=== PATIENT | male | born 1950 | race Caucasian/White ===

== ENCOUNTER → 2016-09-14 | Outpatient (CLI) | payer BC ==
[~2016-09-14] MED LIST: AMLO2.5T PO; ASPEC81 PO; ASPI81TA21 PO; CETI10TA84 PO; METO50TA7 PO; MULT-190 PO; MULT-506 PO; NIAC1TAB59 PO; OMEG10007 PO; OXYC-57 PO; SIMV20TA2 PO; ST JOHN'S WORT PO; ZNTT/150 PO
--- NOTE | 2016-09-14 12:00 | DIAGNOSTIC IMAGING REPORT ---
RENAL ULTRASOUND CLINICAL HISTORY: Hematuria. Abdominal pain. COMPARISON STUDY: Abdominal ultrasound March 25, 2014. TECHNIQUE: Sonography of the kidneys and the urinary bladder was performed. FINDINGS: The right kidney measures 10.8 x 5.9 x 5.1 cm and the left measures 11.4 x 6.1 x 5.2 cm. There is no hydronephrosis. Renal echogenicity is at the upper limits of normal. There are equivocal left renal calculi. Both ureteral jets were identified. The bladder was unremarkable. IMPRESSION: 1. No hydronephrosis. 2. Equivocal nonobstructing left renal calculi. Electronically signed by: Kojo Juan M.D. 09/14/2016 11:59 AM Dictated Date/Time: 09/14/2016 11:57 AM
== END | disposition home or self-care (01) ==
LOC: C.ULTRBC 11:17
PROVIDERS: ATTEND Family Medicine
DX: R39.89 Other symptoms and signs involving the genitourinary system (principal)

== ENCOUNTER → 2016-10-18 | Outpatient (CLI) | payer BC | END | disposition home or self-care (01) | LOC: C.PATHSPEC 17:08 | PROVIDERS: ATTEND Urology | DX: N40.1 Benign prostatic hyperplasia with lower urinary tract symptoms (principal); N20.0 Calculus of kidney; N30.00 Acute cystitis without hematuria ==

== ENCOUNTER → 2016-11-27 | Outpatient (CLI) | payer BC | END | disposition home or self-care (01) | LOC: C.LAB1850 13:53 | PROVIDERS: ATTEND Urology | DX: N40.1 Benign prostatic hyperplasia with lower urinary tract symptoms (principal) ==

== ENCOUNTER → 2017-01-10 | Outpatient (CLI) | payer BC ==
[~2017-01-10] MED LIST changes: -AMLO2.5T PO; -ASPI81TA21 PO; -CETI10TA84 PO; -METO50TA7 PO; -OXYC-57 PO; -ZNTT/150 PO
== END | disposition home or self-care (01) ==
LOC: C.LAB1850 16:59
PROVIDERS: ATTEND Urology
DX: R97.20 Elevated prostate specific antigen [PSA] (principal)

== ENCOUNTER 2017-03-08 08:10 | Observation (INO) | payer BC ==
[~2017-03-08] VITALS: Ht 172.7 cm; Wt 88.9 kg
[2017-03-08] VITALS (9 sets, daily range): BP systolic 118–137; BP diastolic 69–81; PULSE 58–78; TEMP 36.7–37.1; O2SAT 92–98; Ht 172.7 cm; Wt 88.9 kg
--- NOTE | 2017-03-08 08:20 | EMERGENCY ROOM VISIT NOTE ---
History First contact with patient: 08:17 Chief Complaint: ABDOMINAL PAIN Stated Complaint: RT SIDE PAIN History of Present Illness The patient is a 66 year old male who presents to the Emergency Room with complaints of right lower quadrant abdominal pain. The patient states he awoke with the pain which begins continuously spotting. The patient describes the pain as radiating into the groin. He describes it as dull/aching and rates the pain 6/10. The patient has never had pain like this before. He has not taken any medications for his pain. The patient states movement worsens his pain, and lying still helps it. He states he has had difficulty finding a comfortable position. The patient denies any nausea, vomiting, diarrhea, constipation, fevers, chills, night sweats, urinary discomfort or blood in the urine, recent travel or illness, chest pain, dyspnea. The patient states the pain spontaneously began in the right lower quadrant, and denies any periumbilical, epigastric, or other pain. He does have a history of 2 inguinal hernia repairs, one on the right, on the left. He states this morning he also "spit up some blood". The patient described the blood as dark or red, and states he thought it was just mucus. This occurred right before brushing his teeth. He has no history of kidney stones, no prior abdominal surgeries. He does have a significant cardiac history. He states he had a heart valve replaced and has a history of left bundle-branch block. Last food or drink intake was approximately 1900 hrs. yesterday. The patient does have a history of reflux. Review of Systems A complete 10 point review of systems was reviewed with the patient with pertinent positives and negatives as per history of present illness. All else were negative. Past Medical/Surgical History Medical Problems: (1) Appendicitis, acute GERD BPH Hyperlipidemia Social History Smoking Status: Never Smoker Smokeless Tobacco Use: No Alcohol Use: none Drug Use: none Marital Status: Housing Status: lives with family Occupation Status: employed Current/Historical Medications Scheduled Amlodipine (Norvasc), 2.5 MG PO QPM Aspirin Enteric Coated (Ecotrin Or Generic), 81 MG PO DAILY Cetirizine (Zyrtec), 10 MG PO QPM Metoprolol Succ (Toprol Xl) (Toprol-Xl), 25 MG PO QPM Multivitamin (Multivitamin), 1 TAB PO DAILY Ranitidine (Zantac), 150 MG PO QPM Simvastatin (Zocor), 20 MG PO QPM Physical Exam Vital Signs Date Time Temp Pulse Resp B/P (MAP) Pulse Ox O2 Delivery O2 Flow Rate FiO2 03/08/17 16:52 56 19 03/08/17 16:52 56 19 94 03/08/17 16:51 145/81 03/08/17 16:47 60 19 03/08/17 16:47 59 19 95 03/08/17 16:45 148/91 03/08/17 16:42 57 18 94 03/08/17 16:42 58 18 03/08/17 16:41 135/95 03/08/17 16:39 61 20 93 03/08/17 16:39 62 20 03/08/17 16:38 36.7 58 20 135/95 94 Nasal Cannula 2 03/08/17 16:35 154/89 03/08/17 16:34 59 19 03/08/17 16:34 58 19 97 03/08/17 16:30 150/91 03/08/17 16:29 59 19 96 03/08/17 16:29 59 19 03/08/17 16:28 150/100 03/08/17 16:25 171/97 03/08/17 16:24 59 17 03/08/17 16:24 59 17 95 03/08/17 16:23 61 18 03/08/17 16:23 61 18 95 03/08/17 16:20 150/99 03/08/17 16:18 66 19 03/08/17 16:18 65 19 93 03/08/17 16:15 154/98 03/08/17 16:13 62 17 03/08/17 16:13 62 17 94 03/08/17 16:12 155/94 03/08/17 16:11 147/113 03/08/17 16:09 155/101 03/08/17 16:08 66 22 94 03/08/17 16:08 66 22 03/08/17 16:08 36.1 65 16 155/101 (115) 95 Mask 10 03/08/17 14:21 36.8 51 18 148/91 (110) 98 Room Air 03/08/17 14:00 98 03/08/17 13:59 50 16 145/95 98 03/08/17 12:51 50 16 145/95 98 Room Air 03/08/17 11:18 53 16 138/80 99 Room Air 03/08/17 09:39 54 16 135/80 99 Room Air 03/08/17 08:12 36.8 59 17 137/80 97 Room Air Physical Exam VITALS: Vitals are noted on the nurse's note and reviewed by myself. Vital signs stable, pt. is afebrile. GENERAL: 66-year-old male, in no acute distress, nondiaphoretic, well-developed well-nourished. SKIN: The skin was without rashes, erythema, edema, or bruising. There is no tenting of the skin. Capillary reflex less than 2 seconds. HEAD: Normocephalic atraumatic. EARS: External auditory canals clear, tympanic membranes pearly [place] without erythema or effusion bilaterally. EYES: Pupils equal round and reactive to light and accommodation. Conjunctivae without injection, sclerae without icterus. Extraocular movements intact. NOSE: Patent, turbinates without inflammation or discharge. No sinus tenderness. MOUTH: Mucous membranes moist. Tonsils are not enlarged. Pharynx without erythema or exudate. Uvula midline. Airway patent. Tongue does not deviate. NECK: Supple without nuchal rigidity. No lymphadenopathy. No thyromegaly. Cervical spine is nontender. No JVD. HEART: Regular rate and rhythm without murmurs gallops or rubs. LUNGS: Clear to auscultation bilaterally without wheezes, rales or rhonchi. No dullness to percussion. No retractions or accessory muscle use. ABDOMEN: Positive bowel sounds x 4. Normal tympanic percussion. Tenderness noted worse in the RLQ. He does have positive rebound tenderness. Obturator's and Rovsing's signs positive. The abdomen was slightly distended. The abdomen was without palpable masses or organomegaly. Zavaleta sign negative. No guarding or rebound tenderness. MUSCULOSKELETAL: No muscle atrophy, erythema, or edema noted. Full range of motion without joint tenderness in all extremities. No tenderness to palpation. Normal gait. Strength 5/5 throughout. NEURO: Patient was alert and oriented to person place and time. Normal sensation to light and sharp touch. Deep tendon reflexes 2+ throughout. No focal neurological deficits. Medical Decision & Procedures ER Provider Diagnostic Interpretation: LABS: CBC is without leukocytosis, anemia, thrombocytopenia. CMP showed mildly elevated glucose of 110. Electrolytes normal. Renal and hepatic function testing was normal. Lipase was negative. CK-MB was negative. Troponin was normal. CT Abdomen/Pelvis with IV and PO Contrast: FINDINGS: Lower chest: There is a 3 mm solid right lower lobe pulmonary nodule as visualized in image #12/46. There is a second 2.5 mm solid right lower lobe pulmonary nodule as visualized in image #33/486. There are bilateral dependent atelectatic changes. Liver: The contrast-enhanced liver is normal in size, contour, and attenuation. There is no intrahepatic biliary ductal dilatation. The hepatic veins and portal veins are patent. Gallbladder: Unremarkable. Spleen: Normal in size and attenuation. Pancreas: Unremarkable. Adrenal glands: Unremarkable. Kidneys: There is symmetric renal cortical enhancement. The kidneys are normal in size without hydronephrosis. Bowel: There are no transition zones indicate bowel obstruction. There is extensive colonic diverticulosis. There is no acute diverticulitis. The appendix is fluid-filled and dilated with periappendiceal stranding. The findings are indicative of acute appendicitis. Surgical consultation is recommended. Peritoneum: There is no intraperitoneal free air or abdominal ascites. There are bilateral fat-containing hernias. Vasculature: The abdominal aorta is normal in course and caliber. Adenopathy: None. Pelvic viscera: The prostate is prominent with calcifications. Skeletal structures: No destructive osseous lesions are seen. IMPRESSION: Dilated fluid-filled appendix with periappendiceal stranding. The findings are indicative of acute appendicitis. Surgical consultation is recommended CXR: FINDINGS: Lung volumes are at the lower limits of normal. No pneumothorax or pleural effusion is present. Mild bibasilar opacities are noted, left greater than right. There is no evidence of pulmonary edema. Borderline cardiomegaly is noted. IMPRESSION: Mild bibasilar opacities, left greater than right. Atelectasis is favored although an infectious process could appear similar. Laboratory Results 03/08/17 08:25 Red Blood Count 4.75, Mean Corpuscular Volume 95.4, Mean Corpuscular Hemoglobin 32.0, Mean Corpuscular Hemoglobin Concent 33.6, Mean Platelet Volume 9.9, Neutrophils (%) (Auto) 80.1, Lymphocytes (%) (Auto) 9.5, Monocytes (%) (Auto) 9.0, Eosinophils (%) (Auto) 0.7, Basophils (%) (Auto) 0.4, Neutrophils # (Auto) 8.36, Lymphocytes # (Auto) 0.99, Monocytes # (Auto) 0.94, Eosinophils # (Auto) 0.07, Basophils # (Auto) 0.04 03/08/17 08:25 Test 03/08/17 08:25 03/08/17 08:35 03/08/17 09:00 White Blood Count 10.43 K/uL (4.8-10.8) Red Blood Count 4.75 M/uL (4.7-6.1) Hemoglobin 15.2 g/dL (14.0-18.0) Hematocrit 45.3 % (42-52) Mean Corpuscular Volume 95.4 fL (80-100) Mean Corpuscular Hemoglobin 32.0 pg (25-34) Mean Corpuscular Hemoglobin Concent 33.6 g/dl (32-36) Platelet Count 189 K/uL (130-400) Mean Platelet Volume 9.9 fL (7.4-10.4) Neutrophils (%) (Auto) 80.1 % Lymphocytes (%) (Auto) 9.5 % Monocytes (%) (Auto) 9.0 % Eosinophils (%) (Auto) 0.7 % Basophils (%) (Auto) 0.4 % Neutrophils # (Auto) 8.36 K/uL (1.4-6.5) Lymphocytes # (Auto) 0.99 K/uL (1.2-3.4) Monocytes # (Auto) 0.94 K/uL (0.11-0.59) Eosinophils # (Auto) 0.07 K/uL (0-0.5) Basophils # (Auto) 0.04 K/uL (0-0.2) RDW Standard Deviation 46.3 fL (36.4-46.3) RDW Coefficient of Variation 13.2 % (11.5-14.5) Immature Granulocyte % (Auto) 0.3 % Immature Granulocyte # (Auto) 0.03 K/uL (0.00-0.02) Anion Gap 6.0 mmol/L (3-11) Est Creatinine Clear Calc Drug Dose 67.4 ml/min Estimated GFR () 73.6 Estimated GFR (Non- 63.5 BUN/Creatinine Ratio 15.3 (10-20) Calcium Level 9.3 mg/dl (8.5-10.1) Total Bilirubin 0.7 mg/dl (0.2-1) Aspartate Amino Transf (AST/SGOT) 21 U/L (15-37) Alanine Aminotransferase (ALT/SGPT) 38 U/L (12-78) Alkaline Phosphatase 67 U/L (45-117) Creatine Kinase MB 1.8 ng/ml (0.5-3.6) Troponin I < 0.015 ng/ml (0-0.045) Total Protein 6.9 gm/dl (6.4-8.2) Albumin 4.3 gm/dl (3.4-5.0) Globulin 2.6 gm/dl (2.5-4.0) Albumin/Globulin Ratio 1.6 (0.9-2) Lipase 157 U/L (73-393) Creatine Kinase MB Ratio (0-3.0) Urine Color YELLOW Urine Appearance CLEAR (CLEAR) Urine pH 7.5 (4.5-7.5) Urine Specific [place] 1.013 (1.000-1.030) Urine Protein NEG (NEG) Urine Glucose (UA) NEG (NEG) Urine Ketones NEG (NEG) Urine Occult Blood NEG (NEG) Urine Nitrite NEG (NEG) Urine Bilirubin NEG (NEG) Urine Urobilinogen NEG (NEG) Urine Leukocyte Esterase NEG (NEG) Medications Administered Medications (Trade) Dose Ordered Sig/Khalif Route Start Time Stop Time Status Last Admin Dose Admin Sodium Chloride 1,000 ml @ 999 mls/hr Q1H1M STAT IV 03/08/17 13:08 03/08/17 14:08 DC 03/08/17 13:18 999 MLS/HR Levofloxacin (Levaquin / D5W) 500 mg PREOP ONCE IV 03/08/17 14:30 03/08/17 14:31 DC 03/08/17 15:05 500 MG Bupivacaine HCl (Marcaine 0.5% MPF Inj) 30 ml STK-MED ONCE .ROUTE 03/08/17 14:52 03/08/17 14:53 DC 03/08/17 15:51 30 ML ECG Indication: abdominal pain Rate (beats per minute): 52 Rhythm: sinus bradycardia Findings: LBBB, no acute ischemic change Comparison ECG Date: 2009 Change: no significant change Medical Decision The patient presented today with 1 day history of right lower quadrant abdominal pain. His physical examination was consistent with appendicitis. The patient's labs were overall normal, did not show leukocytosis. CT scan did show evidence of acute appendicitis. I did offer the patient pain medication several times, and he declined every time. The patient states he has not eaten or drank anything since yesterday with the exception of the contrast here in the emergency department. I did consult with the general surgeon, Dr. Paredes, who states she would contact the OR to perform an appendectomy. I discussed the findings with the patient, and he was shortly after taken to the operating room. Different diagnosis includes: Acute appendicitis, gastroenteritis, diverticulitis, acute cholecystitis, pancreatitis, small bowel obstruction, cardiac etiology, malignancy, and others Medication Reconcilliation Current Medication List: was personally reviewed by me Blood Pressure Screening Patient's blood pressure: Normal blood pressure Impression Primary Impression: Appendicitis Departure Information Dispostion Admitted as an inpatient Condition GOOD Referrals Padmini Jarrett M.D. (PCP) Patient Instructions My [facility] Problem Qualifiers Primary Impression: Appendicitis Appendicitis type: acute appendicitis Acute appendicitis type: unspecified acute appendicitis type Qualified Codes: K35.80 - Unspecified acute appendicitis
[2017-03-08] MEDS ORDERED: ZNTT/150 PO (08:46)
[2017-03-08] MEDS ORDERED: METO50TA7 PO (08:46)
[2017-03-08] MEDS ORDERED: CETI10TA84 PO (08:46)
[2017-03-08] MEDS ORDERED: AMLO2.5T PO (08:46)
[2017-03-08] MEDS ORDERED: ASPI81TA21 PO (08:46)
[2017-03-08 08:59] LABS: BASO % 0.4 %; BASO ABS # 0.04 K/uL (0-0.2); COMPLETE YES; EOS % 0.7 %; HEMATOCRIT 45.3 % (42-52); IG% 0.3 %; LYMPH % 9.5 %; LYMPH ABS # 0.99 K/uL (1.2-3.4); MEAN CELL VOLUME 95.4 fL (80-100); MEAN CORPUSCULAR HGB CONC 33.6 g/dl (32-36); MEAN PLATELET VOLUME 9.9 fL (7.4-10.4); NEUT % 80.1 %; PLATELET COUNT 189 K/uL (130-400); RED BLOOD COUNT 4.75 M/uL (4.7-6.1); WHITE BLOOD COUNT 10.43 K/uL (4.8-10.8)
[2017-03-08 09:05] LABS: ALT/SGPT 38 U/L (12-78); BLOOD UREA NITROGEN 18 mg/dl (7-18); BUN/CREATININE RATIO 15.3 (10-20); CALCIUM 9.3 mg/dl (8.5-10.1); CARBON DIOXIDE 28 mmol/L (21-32); CHLORIDE 106 mmol/L (98-107); GLUCOSE 110 mg/dl (70-99); POTASSIUM 4.4 mmol/L (3.5-5.1); SODIUM 140 mmol/L (136-145)
[2017-03-08 09:11] LABS: ALB/GLOB RATIO 1.6 (0.9-2); ALKALINE PHOSPHATASE 67 U/L (45-117); AST/SGOT 21 U/L (15-37)
[2017-03-08 09:19] LABS: URINE APPEARANCE CLEAR (CLEAR); URINE BILIRUBIN NEG (NEG); URINE COLOR YELLOW; URINE NITRITE NEG (NEG); URINE PH 7.5 (4.5-7.5); URINE SPECIFIC GRAVITY 1.013 (1.000-1.030); UROBILINOGEN NEG (NEG); ZZUR CULT IF INDIC CLEAN CATCH NO
--- NOTE | 2017-03-08 09:25 | DIAGNOSTIC IMAGING REPORT ---
CHEST 2 VIEWS ROUTINE CLINICAL HISTORY: Hemoptysis. COMPARISON STUDY: Chest radiograph May 01, 2010. FINDINGS: Lung volumes are at the lower limits of normal. No pneumothorax or pleural effusion is present. Mild bibasilar opacities are noted, left greater than right. There is no evidence of pulmonary edema. Borderline cardiomegaly is noted. IMPRESSION: Mild bibasilar opacities, left greater than right. Atelectasis is favored although an infectious process could appear similar. Electronically signed by: Kojo Juan M.D. 03/08/2017 9:23 AM Dictated Date/Time: 03/08/2017 9:21 AM
[2017-03-08 09:26] LABS: MANUAL MICROSCOPIC REQUIRED? NO; REVIEW REQ? NO
[2017-03-08] MEDS ORDERED: OPTIRAY 320 IV PRN (10:15)
--- NOTE | 2017-03-08 12:41 | DIAGNOSTIC IMAGING REPORT ---
CT ABD/PELVIS IV AND ORAL CONT CLINICAL HISTORY: Right lower quadrant abdominal pain COMPARISON STUDY: 10/31/2016 TECHNIQUE: Following the IV administration of 94 mL of Optiray-320, CT scan of the abdomen and pelvis was performed from the lung bases to the proximal femurs. Images are reviewed in the axial, sagittal, and coronal planes. IV contrast was administered without complication. A dose lowering technique was utilized adhering to the principles of ALARA. CT DOSE: 546.13 mGy.cm FINDINGS: Lower chest: There is a 3 mm solid right lower lobe pulmonary nodule as visualized in image #12/46. There is a second 2.5 mm solid right lower lobe pulmonary nodule as visualized in image #33/486. There are bilateral dependent atelectatic changes. Liver: The contrast-enhanced liver is normal in size, contour, and attenuation. There is no intrahepatic biliary ductal dilatation. The hepatic veins and portal veins are patent. Gallbladder: Unremarkable. Spleen: Normal in size and attenuation. Pancreas: Unremarkable. Adrenal glands: Unremarkable. Kidneys: There is symmetric renal cortical enhancement. The kidneys are normal in size without hydronephrosis. Bowel: There are no transition zones indicate bowel obstruction. There is extensive colonic diverticulosis. There is no acute diverticulitis. The appendix is fluid-filled and dilated with periappendiceal stranding. The findings are indicative of acute appendicitis. Surgical consultation is recommended. Peritoneum: There is no intraperitoneal free air or abdominal ascites. There are bilateral fat-containing hernias. Vasculature: The abdominal aorta is normal in course and caliber. Adenopathy: None. Pelvic viscera: The prostate is prominent with calcifications. Skeletal structures: No destructive osseous lesions are seen. IMPRESSION: Dilated fluid-filled appendix with periappendiceal stranding. The findings are indicative of acute appendicitis. Surgical consultation is recommended Electronically signed by: Jerry Ortiz M.D. 03/08/2017 12:40 PM Dictated Date/Time: 03/08/2017 12:35 PM
[2017-03-08] MEDS ORDERED: SODIUM CHLORIDE 0.9% 1000ML 1,000 ML IV STA (13:08)
--- NOTE | 2017-03-08 13:44 | History and Physical ---
History & Physical Date & Time of Service: Mar 08, 2017 at 13:28 Chief Complaint: Rt Side Pain Primary Care Physician: Padmini Jarrett M.D. History of Present Illness 66 yr old man who presents with first episode of RLQ pain since 4 am. Sharp, persistent, worse with bending. Awoke him from sleep and then unable to get back to bed. No nausea or vomiting. No fevers/ chills. Moderate severity. No change in bowel habits. No radiation. Not better after going to the bathroom. Last meal was 8 pm last night. No similar episodes. Past Medical/Surgical History left bundle branch block no prior [place] or a fib mitral valve prolapse hypertension hyperlipidemia prostate issues recently - biopsies next month PSHx; hernia repair x 2 in groin removal of lesion on tongue tonsillectomy Family History no relevant family history Social History Smoking Status: Never Smoker Smokeless Tobacco Use: No Drug Use: none Marital Status: Occupational Status: employed Immunizations History of Influenza Vaccine: Yes History of Tetanus Vaccine?: Yes History of Pneumococcal: No History of Hepatitis B Vaccine: No Multi-Drug Resistant Organisms History of MDRO: No Allergies Coded Allergies: Penicillins (Verified Allergy, Mild, RASH, 08/05/09) Home Medications Scheduled Amlodipine (Norvasc), 2.5 MG PO QPM Aspirin Enteric Coated (Ecotrin Or Generic), 81 MG PO DAILY Cetirizine (Zyrtec), 10 MG PO QPM Metoprolol Succ (Toprol Xl) (Toprol-Xl), 25 MG PO QPM Multivitamin (Multivitamin), 1 TAB PO DAILY Ranitidine (Zantac), 150 MG PO QPM Simvastatin (Zocor), 20 MG PO QPM Review of Systems Constitutional: No fever, No chills Eyes: No worsening of vision, No eye pain ENT: No hearing loss, No sore throat Respiratory: + cough (coughed up a small amount of blood this morning for the first time, none since.), No sputum, No wheezing, No shortness of breath Cardiovascular: No chest pain, No orthopnea Abdomen: + pain, No nausea, No vomiting Musculoskeletal: No joint pain, No muscle pain Genitourinary - Male: + problem reported (on medicines for his prostate) Neurologic: No memory loss, No paralysis, No weakness Psychiatric: No depression symptoms, No anhedonism Endocrine: No problem reported Hematologic / Lymphatic: No problem reported Integumentary: No rash, No problem reported Allergic / Immunologic: No problem reported Physical Exam Vital Signs Date Time Temp Pulse Resp B/P (MAP) Pulse Ox O2 Delivery O2 Flow Rate FiO2 03/08/17 12:51 50 16 145/95 98 Room Air 03/08/17 11:18 53 16 138/80 99 Room Air 03/08/17 09:39 54 16 135/80 99 Room Air 03/08/17 08:12 36.8 59 17 137/80 97 Room Air General Appearance: WD/WN, no apparent distress Head: normocephalic, atraumatic Eyes: normal inspection ENT: hearing grossly normal Neck: supple, no JVD Respiratory/Chest: lungs clear, normal breath sounds, no respiratory distress Cardiovascular: regular rate, rhythm, no edema, + systolic murmur (over mitral area) Abdomen/GI: normal bowel sounds, soft, no organomegaly, + tenderness (RLQ over lateral to mcBurney's point) Back: no CVA tenderness, no muscle spasm Extremities/Musculoskelatal: no calf tenderness, no pedal edema Neurologic/Psych: alert, normal mood/affect, normal reflexes, oriented x 3 Skin: normal color, warm/dry Diagnostics Laboratory Results Results Past 24 Hours Test 03/08/17 08:25 03/08/17 08:35 03/08/17 09:00 Range/Units White Blood Count 10.43 4.8-10.8 K/uL Red Blood Count 4.75 4.7-6.1 M/uL Hemoglobin 15.2 14.0-18.0 g/dL Hematocrit 45.3 42-52 % Mean Corpuscular Volume 95.4 80-100 fL Mean Corpuscular Hemoglobin 32.0 25-34 pg Mean Corpuscular Hemoglobin Concent 33.6 32-36 g/dl Platelet Count 189 130-400 K/uL Mean Platelet Volume 9.9 7.4-10.4 fL Neutrophils (%) (Auto) 80.1 % Lymphocytes (%) (Auto) 9.5 % Monocytes (%) (Auto) 9.0 % Eosinophils (%) (Auto) 0.7 % Basophils (%) (Auto) 0.4 % Neutrophils # (Auto) 8.36 1.4-6.5 K/uL Lymphocytes # (Auto) 0.99 1.2-3.4 K/uL Monocytes # (Auto) 0.94 0.11-0.59 K/uL Eosinophils # (Auto) 0.07 0-0.5 K/uL Basophils # (Auto) 0.04 0-0.2 K/uL RDW Standard Deviation 46.3 36.4-46.3 fL RDW Coefficient of Variation 13.2 11.5-14.5 % Immature Granulocyte % (Auto) 0.3 % Immature Granulocyte # (Auto) 0.03 0.00-0.02 K/uL Sodium Level 140 136-145 mmol/L Potassium Level 4.4 3.5-5.1 mmol/L Chloride Level 106 98-107 mmol/L Carbon Dioxide Level 28 21-32 mmol/L Anion Gap 6.0 3-11 mmol/L Blood Urea Nitrogen 18 7-18 mg/dl Creatinine 1.20 0.60-1.40 mg/dl Est Creatinine Clear Calc Drug Dose 67.4 ml/min Estimated GFR () 73.6 Estimated GFR (Non- 63.5 BUN/Creatinine Ratio 15.3 10-20 Random Glucose 110 70-99 mg/dl Calcium Level 9.3 8.5-10.1 mg/dl Total Bilirubin 0.7 0.2-1 mg/dl Aspartate Amino Transf (AST/SGOT) 21 15-37 U/L Alanine Aminotransferase (ALT/SGPT) 38 12-78 U/L Alkaline Phosphatase 67 45-117 U/L Creatine Kinase MB 1.8 0.5-3.6 ng/ml Troponin I < 0.015 0-0.045 ng/ml Total Protein 6.9 6.4-8.2 gm/dl Albumin 4.3 3.4-5.0 gm/dl Globulin 2.6 2.5-4.0 gm/dl Albumin/Globulin Ratio 1.6 0.9-2 Lipase 157 73-393 U/L Creatine Kinase MB Ratio 0-3.0 Urine Color YELLOW Urine Appearance CLEAR CLEAR Urine pH 7.5 4.5-7.5 Urine Specific [place] 1.013 1.000-1.030 Urine Protein NEG NEG Urine Glucose (UA) NEG NEG Urine Ketones NEG NEG Urine Occult Blood NEG NEG Urine Nitrite NEG NEG Urine Bilirubin NEG NEG Urine Urobilinogen NEG NEG Urine Leukocyte Esterase NEG NEG Diagnostic Radiology CT scan with acute appendicitis. Impression Assessment and Plan 66 yr old man with acute appendicitis. Consent signed for laparoscopic appendectomy. Risks of bleeding, infection, postop abscess/ ileus, conversion to open all discussed. Expected overnight hospital stay and 1-2 wk recovery reviewed.
[2017-03-08] MEDS ORDERED: GLYCOPYRROLATE INJ 0.2 MG/ML VIAL ONE (14:03)
[2017-03-08] MEDS ORDERED: ONDANSETRON INJ 2 MG/ML 2 ML VIAL ONE (14:03)
[2017-03-08] MEDS ORDERED: DEXAMETHASONE SOD INJ 4 MG/ML VIAL ONE (14:03)
[2017-03-08] MEDS ORDERED: PROPOFOL IV EMULSION 10 MG/ML 20 ML VIAL IV ONE (14:03)
[2017-03-08] MEDS ORDERED: FENTANYL CITRATE INJ 50 MCG/1 ML 2 ML VIAL ONE (14:03)
[2017-03-08] MEDS ORDERED: NEOSTIGMINE METHYLSULFATE 5 MG/5 ML SYR ONE (14:03)
[2017-03-08] MEDS ORDERED: LIDOCAINE HCL 2% 2 ML VIAL (20MG/ML) ONE (14:03)
[2017-03-08] MEDS ORDERED: MIDAZOLAM HCL 1 MG/ML 2ML VIAL ONE (14:03)
[2017-03-08] MEDS ORDERED: ROCURONIUM BROMIDE 10 MG/ML 5 ML VIAL IV ONE (14:04)
[2017-03-08] MEDS ORDERED: LEVAQUIN 500MG / 100ML D5W IV ONE (14:30)
[2017-03-08] MEDS ORDERED: BUPIVACAINE 0.5 % 5 MG/1 ML MPF 30ML VIAL ONE (14:52)
--- NOTE | 2017-03-08 15:58 | [facility] Post Operative Brief Note ---
Immediate Operative Summary Operative Date Mar 08, 2017. Pre-Operative Diagnosis Acute Appendicitis Post-Operative Diagnosis Acute Appendicitis Procedure(s) Performed Laparoscopic Appendectomy Surgeon Dr.Mona Paredes Range Scientist Surgeon(s) None Estimated Blood Loss 5ML Findings acute dilated inflamed appendix Fluids (cc crystalloids) 1400 cc Specimens A. Appendix Drains none Anesthesia GET Complication(s) None Disposition Recovery Room / PACU
[2017-03-08] MEDS ORDERED: MoRPHine SULFATE 2 MG/ML CARP IV PRN ×2 (16:00)
[2017-03-08] MEDS ORDERED: OXYCODONE/ACETAMINOPHEN 5-325 TAB PO PRN ×2 (16:00)
[2017-03-08] MEDS ORDERED: MoRPHine SULFATE 4 MG/ML 1 ML CARP\\VIAL IV PRN (16:00)
[2017-03-08] MEDS ORDERED: ONDANSETRON INJ 2 MG/ML 2 ML VIAL IV PRN ×2 (16:00→17:00)
[2017-03-08] MEDS ORDERED: ACETAMINOPHEN 325 MG TAB PO PRN (16:00)
--- NOTE | 2017-03-08 16:08 | Discharge Instructions ---
Discharge Instructions Date of Service Mar 08, 2017. Admission Reason for Admission: Rt Side Pain Discharge Discharge Diagnosis / Problem: ACUTE APPENDICITIS Discharge Goals Goal(s): Decrease discomfort Activity Recommendations Activity Limitations: resume your previous activity (walking/ stairs OK) Lifting Limitations: no more than 10 pounds (for 6 wks) Exercise/Sports Limitations: until after follow-up appointment May Resume Sexual Activity: after two weeks Shower/Bathe: tomorrow (remove outer dressings prior to shower, leave steristrips) . Current Hospital Diet Patient's current hospital diet: Clear Liquid Diet Discharge Diet Recommended Diet: Regular Diet Procedures Procedures Performed: Laparoscopic Appendectomy Pending Studies Studies pending at discharge: no Work Instructions Return To Work: after follow-up (2 wks) Lifting Limitations: no more than 20 pounds (for 6 wks) Medical Emergencies . Who to Call and When: Medical Emergencies: If at any time you feel your situation is an emergency, please call 911 immediately. . Non-Emergent Contact Non-Emergency issues call your: Surgeon Contact Number: [phone] Call Non-Emergent contact if: temperature is above 101.5, your pain is not controlled, your pain is worsening, your pain is unusual for you, your pain is concerning you, wound has increased drainage, wound has increased redness, wound has increased pain, you have any medication questions . "Provider Documentation" section prepared by Fatemeh Paredes. . VTE Core Measure Inpt VTE Proph given/why not?: SCD's [place] Drug Monitoring Program Search Results: patient reviewed within database, no issues identified
--- NOTE | 2017-03-08 16:52 | Anesthesiology Progress Note ---
Anesthesia Post Op Note Date & Time Mar 08, 2017 at 16:51 Vital Signs Pain Intensity: 0 Vital Signs Past 12 Hours Date Time Temp Pulse Resp B/P (MAP) Pulse Ox O2 Delivery O2 Flow Rate FiO2 03/08/17 16:41 135/95 03/08/17 16:39 61 20 93 03/08/17 16:39 62 20 03/08/17 16:38 36.7 58 20 135/95 94 Nasal Cannula 2 03/08/17 16:35 154/89 03/08/17 16:34 59 19 03/08/17 16:34 58 19 97 03/08/17 16:30 150/91 03/08/17 16:29 59 19 96 03/08/17 16:29 59 19 03/08/17 16:28 150/100 03/08/17 16:25 171/97 03/08/17 16:24 59 17 03/08/17 16:24 59 17 95 03/08/17 16:23 61 18 03/08/17 16:23 61 18 95 03/08/17 16:20 150/99 03/08/17 16:18 66 19 03/08/17 16:18 65 19 93 03/08/17 16:15 154/98 03/08/17 16:13 62 17 03/08/17 16:13 62 17 94 03/08/17 16:12 155/94 03/08/17 16:11 147/113 03/08/17 16:09 155/101 03/08/17 16:08 66 22 94 03/08/17 16:08 66 22 03/08/17 16:08 36.1 65 16 155/101 (115) 95 Mask 10 03/08/17 14:21 36.8 51 18 148/91 (110) 98 Room Air 03/08/17 14:00 98 03/08/17 13:59 50 16 145/95 98 03/08/17 12:51 50 16 145/95 98 Room Air 03/08/17 11:18 53 16 138/80 99 Room Air 03/08/17 09:39 54 16 135/80 99 Room Air 03/08/17 08:12 36.8 59 17 137/80 97 Room Air Notes Mental Status: alert / awake / arousable, participated in evaluation Pt Amnestic to Procedure: Yes Nausea / Vomiting: adequately controlled Pain: adequately controlled Airway Patency, RR, SpO2: stable & adequate BP & HR: stable & adequate Hydration State: stable & adequate Anesthetic Complications: no major complications apparent
--- NOTE | 2017-03-08 16:56 | OPERATIVE REPORT ---
DATE OF OPERATION: 03/08/2017 PREOPERATIVE DIAGNOSIS: Acute appendicitis. POSTOPERATIVE DIAGNOSIS: Same. OPERATIVE PROCEDURE: Laparoscopic appendectomy. ANESTHESIA: General endotracheal anesthesia. ASA 2E. SURGEON: Dr. Fatemeh Paredes. SCIENTIFIC AFFAIRS MANAGER: None. ESTIMATED BLOOD LOSS: 5 mL. IV FLUIDS: 1400 mL. SPECIMENS: Appendix. DRAINS: None. COMPLICATIONS: None. OPERATIVE FINDINGS: Dilated inflamed appendix consistent with acute appendicitis. INDICATIONS: Mr. Carey is a 66-year-old gentleman who presented with acute appendicitis. He was consented regarding laparoscopic appendectomy. He was noted to have a small umbilical hernia on his physical exam. DESCRIPTION OF PROCEDURE: The patient received Avelox preoperatively. After the induction of general endotracheal anesthesia and placed in sequential compression devices, he was positioned with his left arm tucked. His abdomen was clipped and then sterilely prepped and draped. He was positioned in Trendelenburg. A supraumbilical incision was made. This was carried down and the hernia sac dissected free. This was followed back into the peritoneal cavity. The fascia above the hernia sac was grasped and a Veress needle placed into the peritoneal cavity. Pneumoperitoneum was established. Initial pressure was 2 mmHg and this was taken up to 15 mmHg. The Veress needle had been tested with the saline drop test prior to insufflation. Once full Pneumoperitoneum was established, a very small hernia was reduced and a 12-mm trocar placed through this. The abdomen was inspected. Two additional trocars were placed on the left side, 1 in the left lower quadrant measuring 5 mm and the other just to the left of the pubis, measuring 5 mm. The appendix was visualized coursing off the base of the cecum. This was very dilated and inflamed with an inflamed mesentery. A window was created at the base of the appendix off the cecum and the appendix was divided off the cecum with a firing of the MAHENDRA purple load stapler. The appendiceal mesentery was taken with 3 sequential firings of the MAHENDRA 45 vascular load stapler. The appendix was placed in an Endocatch and removed through the umbilical incision. The abdomen was inspected. There was no evidence of any bleeding noted. This was then irrigated and suctioned until the effluent was clear. The trocars were removed. 30 mL of 0.5% Marcaine were used for local anesthesia in all the incisions. The fascia of the umbilicus was closed with 0 Vicryl stitches placed transversely across the defect. The skin of all 3 incisions was closed with running subcuticular 4-0 Vicryl sutures. Steri-Strips and sterile dressings were applied. He was awakened from anesthesia and taken to recovery in stable condition. I attest to the content of the Intraoperative Record and any orders documented therein. Any exception s are noted below.
[2017-03-08] MEDS ORDERED: FENTANYL CITRATE INJ 50 MCG/1 ML 2 ML VIAL IV PRN (17:00)
[2017-03-08] MEDS ORDERED: EpHEDrine SULFATE INJ 50 MG/ML AMP IV PRN (17:00)
[2017-03-08] MEDS ORDERED: ATROPINE SULFATE 0.1 MG/ML 5ML SYR IV PRN (17:00)
[2017-03-08] MEDS: D5W AND 1/2NSS + 20MEQ KCL 1,000 ML IV SCH (18:24)
[2017-03-08] MEDS ORDERED: IV FLUIDS COMPLETED PRN (20:15)
[2017-03-08] MEDS ORDERED: RANITIDINE HCL 150 MG TAB PO SCH (21:00)
[2017-03-08] MEDS ORDERED: AMLODIPINE BESYLATE 5 MG TAB PO SCH (21:00)
[2017-03-08] MEDS ORDERED: CETIRIZINE HCL 10 MG TAB PO SCH (21:00)
[2017-03-08] MEDS ORDERED: SIMVASTATIN 20 MG TAB PO SCH (21:00)
[2017-03-08] MEDS ORDERED: METOPROLOL SUCC 25MG EXT REL TAB PO SCH (21:00)
[2017-03-09] MEDS: D5W AND 1/2NSS + 20MEQ KCL 1,000 ML IV SCH (01:41)
[2017-03-09 03:44] VITALS: BP 130/76; PULSE 56; TEMP 36.8; O2SAT 96
[2017-03-09 07:27] VITALS: BP 166/94; PULSE 50; TEMP 36.6; O2SAT 95
--- NOTE | 2017-03-09 08:19 | Surgery Progress Note ---
Surgery Progress Note Date of Service Mar 09, 2017. Subjective Post OP Day: 1 + feeling well, + ambulating, + pain controlled, + diet Objective Vital Signs: Date Time Temp Pulse Resp B/P (MAP) Pulse Ox O2 Delivery O2 Flow Rate FiO2 03/09/17 07:27 36.6 50 16 166/94 (118) 95 Room Air 03/09/17 03:44 36.8 56 16 130/76 (94) 96 Room Air 03/08/17 23:20 Room Air 03/08/17 23:03 36.9 60 16 125/70 (88) 93 Room Air 03/08/17 21:41 68 125/80 (95) 03/08/17 20:00 37.1 72 18 120/73 (89) 92 Room Air 03/08/17 19:00 37.0 78 18 137/74 (95) 93 Room Air 03/08/17 18:00 36.7 59 20 135/81 (99) 96 Nasal Cannula 2.0 03/08/17 17:30 36.7 58 18 120/76 (91) 97 Nasal Cannula 2.0 03/08/17 17:10 Nasal Cannula 2.0 03/08/17 17:10 94 Nasal Cannula 2.0 03/08/17 17:00 36.8 63 16 118/69 (85) 94 Nasal Cannula 2.0 03/08/17 16:52 56 19 03/08/17 16:52 56 19 94 03/08/17 16:51 145/81 03/08/17 16:47 60 19 03/08/17 16:47 59 19 95 03/08/17 16:45 148/91 03/08/17 16:42 57 18 94 03/08/17 16:42 58 18 03/08/17 16:41 135/95 03/08/17 16:39 61 20 93 03/08/17 16:39 62 20 03/08/17 16:38 36.7 58 20 135/95 94 Nasal Cannula 2 03/08/17 16:35 154/89 03/08/17 16:34 59 19 03/08/17 16:34 58 19 97 03/08/17 16:30 150/91 03/08/17 16:29 59 19 96 03/08/17 16:29 59 19 03/08/17 16:28 150/100 03/08/17 16:25 171/97 03/08/17 16:24 59 17 03/08/17 16:24 59 17 95 03/08/17 16:23 61 18 03/08/17 16:23 61 18 95 03/08/17 16:20 150/99 03/08/17 16:18 66 19 03/08/17 16:18 65 19 93 03/08/17 16:15 154/98 03/08/17 16:13 62 17 03/08/17 16:13 62 17 94 03/08/17 16:12 155/94 03/08/17 16:11 147/113 03/08/17 16:09 155/101 03/08/17 16:08 66 22 94 03/08/17 16:08 66 22 03/08/17 16:08 36.1 65 16 155/101 (115) 95 Mask 10 03/08/17 14:21 36.8 51 18 148/91 (110) 98 Room Air 03/08/17 14:00 98 03/08/17 13:59 50 16 145/95 98 03/08/17 12:51 50 16 145/95 98 Room Air 03/08/17 11:18 53 16 138/80 99 Room Air 03/08/17 09:39 54 16 135/80 99 Room Air General Appearance: WD/WN, no apparent distress Respiratory/Chest: normal breath sounds, no respiratory distress Abdomen: normal bowel sounds, non distended, soft, + tenderness (mild) Incision(s): clean, dry, intact Laboratory Results: Results Past 24 Hours Test 03/08/17 08:25 03/08/17 08:35 03/08/17 09:00 Range/Units White Blood Count 10.43 4.8-10.8 K/uL Red Blood Count 4.75 4.7-6.1 M/uL Hemoglobin 15.2 14.0-18.0 g/dL Hematocrit 45.3 42-52 % Mean Corpuscular Volume 95.4 80-100 fL Mean Corpuscular Hemoglobin 32.0 25-34 pg Mean Corpuscular Hemoglobin Concent 33.6 32-36 g/dl Platelet Count 189 130-400 K/uL Mean Platelet Volume 9.9 7.4-10.4 fL Neutrophils (%) (Auto) 80.1 % Lymphocytes (%) (Auto) 9.5 % Monocytes (%) (Auto) 9.0 % Eosinophils (%) (Auto) 0.7 % Basophils (%) (Auto) 0.4 % Neutrophils # (Auto) 8.36 1.4-6.5 K/uL Lymphocytes # (Auto) 0.99 1.2-3.4 K/uL Monocytes # (Auto) 0.94 0.11-0.59 K/uL Eosinophils # (Auto) 0.07 0-0.5 K/uL Basophils # (Auto) 0.04 0-0.2 K/uL RDW Standard Deviation 46.3 36.4-46.3 fL RDW Coefficient of Variation 13.2 11.5-14.5 % Immature Granulocyte % (Auto) 0.3 % Immature Granulocyte # (Auto) 0.03 0.00-0.02 K/uL Sodium Level 140 136-145 mmol/L Potassium Level 4.4 3.5-5.1 mmol/L Chloride Level 106 98-107 mmol/L Carbon Dioxide Level 28 21-32 mmol/L Anion Gap 6.0 3-11 mmol/L Blood Urea Nitrogen 18 7-18 mg/dl Creatinine 1.20 0.60-1.40 mg/dl Est Creatinine Clear Calc Drug Dose 67.4 ml/min Estimated GFR () 73.6 Estimated GFR (Non- 63.5 BUN/Creatinine Ratio 15.3 10-20 Random Glucose 110 70-99 mg/dl Calcium Level 9.3 8.5-10.1 mg/dl Total Bilirubin 0.7 0.2-1 mg/dl Aspartate Amino Transf (AST/SGOT) 21 15-37 U/L Alanine Aminotransferase (ALT/SGPT) 38 12-78 U/L Alkaline Phosphatase 67 45-117 U/L Creatine Kinase MB 1.8 0.5-3.6 ng/ml Troponin I < 0.015 0-0.045 ng/ml Total Protein 6.9 6.4-8.2 gm/dl Albumin 4.3 3.4-5.0 gm/dl Globulin 2.6 2.5-4.0 gm/dl Albumin/Globulin Ratio 1.6 0.9-2 Lipase 157 73-393 U/L Creatine Kinase MB Ratio 0-3.0 Urine Color YELLOW Urine Appearance CLEAR CLEAR Urine pH 7.5 4.5-7.5 Urine Specific Gregory 1.013 1.000-1.030 Urine Protein NEG NEG Urine Glucose (UA) NEG NEG Urine Ketones NEG NEG Urine Occult Blood NEG NEG Urine Nitrite NEG NEG Urine Bilirubin NEG NEG Urine Urobilinogen NEG NEG Urine Leukocyte Esterase NEG NEG Assessment & Plan s/p lap appendectomy. Doing well. OK to discharge home.
[2017-03-09] MEDS ORDERED: OXYC-57 PO (08:20)
--- NOTE | 2017-03-09 08:22 | Discharge Summary ---
Discharge Summary Date of Service Mar 09, 2017. Admission Date/Reason Mar 08, 2017 at 10:00 Appendicitis, Acute. Discharge Date/Disposition Mar 09, 2017 Home Diagnosis Principal Diagnosis: acute appendicitis Procedure(s) Performed laparoscopic appendectomy Medication Reconciliation New Medications: Oxycodone/Acetaminophen 5MG/325MG (Percocet 5MG/325MG) Tab 1-2 TAB PO Q4H PRN for moderate pain (pain scale 4-6), #30 TAB PAIN Continued Medications: Amlodipine (Norvasc) 2.5 Mg Tab 2.5 MG PO QPM, TAB Aspirin Enteric Coated (Ecotrin Or Generic) 81 Mg Tab 81 MG PO DAILY, TAB Cetirizine (Zyrtec) 10 Mg Tab 10 MG PO QPM, TAB Metoprolol Succ (Toprol Xl) (Toprol-Xl) 50 Mg Tabcr 25 MG PO QPM, #30 TAB Multivitamin (Multivitamin) Tab 1 TAB PO DAILY, 0 Refills Ranitidine (Zantac) 150 Mg Tab 150 MG PO QPM, TAB Simvastatin (Zocor) 20 Mg Tab 20 MG PO QPM, 0 Refills Admission Physical Exam As per Admitting History & Physical. Hospital Course Uncomplicated laparoscopic appendectomy. Discharged home in stable condition once tolerating diet with good pain control. Discharge Instructions Please refer to the electronic Patient Visit Report (Discharge Instructions) for additional information.
[2017-03-09] MEDS ORDERED: MULTIVITAMIN TAB PO SCH (09:00)
[2017-03-09] MEDS ORDERED: ASPIRIN 81 MG ECTAB PO SCH (09:00)
[2017-03-09] MEDS ORDERED: LEVOFLOXACIN / D5W 500 MG in PREMIXED IN D5W 100 ML IV SCH (11:00)
[2017-03-09 13:19] VITALS: BP 166/94; PULSE 50; TEMP 36.6; O2SAT 95
== END 2017-03-09 14:50 | disposition home or self-care (01) ==
LOC: C.EDB 08:11 → C.MSW 10:00 → ENRESERV 16:47
PROVIDERS: ADMIT Surgery; ATTEND Surgery
DX: K35.80 Unspecified acute appendicitis (principal); I34.1 Nonrheumatic mitral (valve) prolapse; I44.7 Left bundle-branch block, unspecified; I10 Essential (primary) hypertension; E78.5 Hyperlipidemia, unspecified; Z79.82 Long term (current) use of aspirin; Z79.899 Other long term (current) drug therapy

== ENCOUNTER → 2017-04-09 | Outpatient (CLI) | payer BC ==
[~2017-04-09] MED LIST changes: +AMLO2.5T PO; -ASPEC81 PO; +ASPI81TA21 PO; +CETI10TA84 PO; +METO50TA7 PO; -MULT-190 PO; -NIAC1TAB59 PO; -OMEG10007 PO; +OXYC-57 PO; -ST JOHN'S WORT PO; +ZNTT/150 PO
== END | disposition home or self-care (01) ==
LOC: C.PATHSPEC 18:16
PROVIDERS: ATTEND Urology
DX: R97.20 Elevated prostate specific antigen [PSA] (principal)

== ENCOUNTER → 2017-07-08 | Outpatient (CLI) | payer BC ==
[2017-07-08 18:07] LABS: BASO % 0.4 %; BASO ABS # 0.03 K/uL (0-0.2); EOS % 1.7 %; EOS ABS # 0.14 K/uL (0-0.5); HEMATOCRIT 43.2 % (42-52); HEMOGLOBIN 14.6 g/dL (14.0-18.0); IG# 0.02 K/uL (0.00-0.02); LYMPH ABS # 1.45 K/uL (1.2-3.4); MEAN CELL VOLUME 95.4 fL (80-100); MEAN CORPUSCULAR HEMOGLOBIN 32.2 pg (25-34); MEAN CORPUSCULAR HGB CONC 33.8 g/dl (32-36); MONO % 13.2 %; MONO ABS # 1.06 K/uL (0.11-0.59); NEUT % 66.5 %; NEUT ABS # 5.36 K/uL (1.4-6.5); PLATELET COUNT 177 K/uL (130-400); RED CELL DISTRIBUTION WIDTH CV 13.3 % (11.5-14.5); RED CELL DISTRIBUTION WIDTH SD 46.4 fL (36.4-46.3); WHITE BLOOD COUNT 8.06 K/uL (4.8-10.8)
[2017-07-08 18:17] LABS: ALBUMIN 4.2 gm/dl (3.4-5.0); ALT/SGPT 38 U/L (12-78); AST/SGOT 18 U/L (15-37); BLOOD UREA NITROGEN 27 mg/dl (7-18); CALCIUM 9.1 mg/dl (8.5-10.1); CARBON DIOXIDE 30 mmol/L (21-32); CHOLESTEROL 140 mg/dl (0-200); CREATININE 1.17 mg/dl (0.60-1.40); GLUCOSE 83 mg/dl (70-99); POTASSIUM 4.3 mmol/L (3.5-5.1); SODIUM 137 mmol/L (136-145)
[2017-07-08 18:21] LABS: LDL CHOLESTEROL CALCULATED 72 mg/dl; PHOSPHORUS 2.9 mg/dl (2.5-4.9)
== END | disposition home or self-care (01) ==
LOC: C.LABMFLN 15:34
PROVIDERS: ATTEND Family Medicine
DX: I10 Essential (primary) hypertension (principal); E78.5 Hyperlipidemia, unspecified

== ENCOUNTER → 2017-08-26 | Outpatient (CLI) | payer BC ==
[~2017-08-26] MED LIST changes: -METO50TA7 PO; +METO50TA8 PO; +OPTIRAY 320 IV PRN; +RANI150T85 PO; -ZNTT/150 PO
--- NOTE | 2017-08-26 18:53 | DIAGNOSTIC IMAGING REPORT ---
ABDOMEN AND PELVIS CT WITH IV AND ORAL CONTRAST CT DOSE: 866.74 mGycm HISTORY: R10.32 Abdominal pain, LLQ (left lower quadrant) TECHNIQUE: Multiaxial CT images of the abdomen and pelvis were performed following the use of intravenous and oral contrast. A dose lowering technique was utilized adhering to the principles of ALARA. COMPARISON STUDY: Abdomen and pelvis CT 03/08/2017. FINDINGS: Stable 2 mm right lower lobe nodule. A few bibasilar linear densities consistent with subsegmental atelectasis are scarring. No pneumoperitoneum. No pneumatosis. Degenerative changes again noted within the lumbar spine. No suspicious lytic or blastic osseous lesions. Tiny hiatus hernia. Small fat-containing bilateral inguinal hernias. The liver, gallbladder, spleen, adrenal glands, pancreas are unremarkable. No retroperitoneal lymphadenopathy. No hydronephrosis. There are few scattered subcentimeter hypodense lesions within the kidneys. These are too small to characterize. There is also a 7 mm hypodense lesion within the interpolar region of the left kidney on image 183. This does not clearly represent a simple cyst. No evidence for bowel obstruction. Prior appendectomy. The bladder appears unremarkable. Mild thickening of the proximal to mid sigmoid colon with multiple colonic diverticula. There are are also mild pericolonic inflammatory changes most pronounced at 8 diverticulum best seen on image 313. Therefore, these finds are consistent with acute diverticulitis. No perforation or abscess identified at this time. IMPRESSION: 1. Acute sigmoid diverticulitis. No perforation or abscess identified. 2. No evidence for bowel obstruction. 3. A 7 mm hypodense lesion within the left kidney which does not clearly represent a simple cyst. This raises the possibility of a complex cyst or renal mass. Follow-up nonemergent renal MRI is recommended for further evaluation. Electronically signed by: Xander Turner M.D. 08/26/2017 6:52 PM Dictated Date/Time: 08/26/2017 6:42 PM
== END | disposition home or self-care (01) ==
LOC: C.CTS 16:31
PROVIDERS: ATTEND Family Medicine
DX: K57.32 Diverticulitis of large intestine without perforation or abscess without bleeding (principal); N28.9 Disorder of kidney and ureter, unspecified

== ENCOUNTER → 2017-08-27 | Outpatient (CLI) | payer BC ==
[~2017-08-27] MED LIST changes: -OPTIRAY 320 IV PRN
== END | disposition home or self-care (01) ==
LOC: C.LABMFLN 08:51
PROVIDERS: ATTEND Family Medicine
DX: R19.7 Diarrhea, unspecified (principal)

== ENCOUNTER → 2017-09-02 | Outpatient (CLI) | payer BC ==
[~2017-09-02] MED LIST changes: +GADAVIST IV PRN
[2017-09-02 13:44] LABS: BLOOD UREA NITROGEN 23 mg/dl (7-18); CREATININE 1.36 mg/dl (0.60-1.40)
--- NOTE | 2017-09-02 15:06 | DIAGNOSTIC IMAGING REPORT ---
MRI OF THE ABDOMEN COMBO CLINICAL HISTORY: Left renal lesion. COMPARISON STUDY: Abdominal CT scans dated 08/26/2017 and 03/08/2017. TECHNIQUE: MRI of the abdomen is performed transverse T1 and T2-weighted sequences in the axial and coronal planes. Contrast enhanced sequences were acquired following the IV administration of 8.5 cc of Gadavist. Subtraction imaging was utilized. FINDINGS: Lower chest: No pleural effusion is identified. The heart is normal in size. A small hiatal hernia is identified. Liver: The liver is normal in size, contour, and signal intensity. No intrahepatic biliary ductal dilatation is seen. The hepatic veins and portal veins are patent. Gallbladder: Unremarkable. Spleen: Normal in size and signal intensity. Pancreas: Unremarkable. Adrenal glands: Unremarkable. Kidneys: The kidneys are normal in size and without hydronephrosis. The kidneys enhance and excrete symmetrically. An 8 mm cyst is seen in the lower pole of the left kidney. Again seen is a 7 mm indeterminant cortical lesion in the interpolar left kidney. This is best seen on axial postcontrast image #44. This is T2 isointense and does not clearly show postcontrast enhancement. Abdominal aorta: Normal in course and caliber. Bowel: Visualized portions of the small bowel and colon show no evidence of obstruction. Diverticular disease is noted in the colon on the coronal sequences. Peritoneum: There is no abdominal ascites. Lymphadenopathy: None. Skeletal structures: Visualized skeletal structures times are normal marrow signal intensity. IMPRESSION: 1. Again seen is a 7 mm lesion in the interpolar left kidney. This appears T2 isointense and does not clearly demonstrate postcontrast enhancement but is difficult to assess due to its small size. This remains pathologically indeterminant, and although this likely represents a complex/proteinaceous cyst a tiny renal cell carcinoma would be impossible to exclude. Continued CT follow-up in 6 months time is recommended for reassessment. 2. Additional subcentimeter simple cyst is identified in the lower pole of left kidney. 3. Diverticular disease is noted in the partially imaged colon. Electronically signed by: Doe Li M.D. 09/02/2017 3:05 PM Dictated Date/Time: 09/02/2017 2:56 PM
== END | disposition home or self-care (01) ==
LOC: C.MRI 12:51
PROVIDERS: ATTEND Family Medicine
DX: N20.0 Calculus of kidney (principal); N40.1 Benign prostatic hyperplasia with lower urinary tract symptoms; N28.9 Disorder of kidney and ureter, unspecified; K57.32 Diverticulitis of large intestine without perforation or abscess without bleeding

== ENCOUNTER → 2017-09-17 | Outpatient (CLI) | payer BC ==
[~2017-09-17] MED LIST changes: -GADAVIST IV PRN; +OPTIRAY 320 IV PRN
--- NOTE | 2017-09-17 14:56 | DIAGNOSTIC IMAGING REPORT ---
CT ABD/PELVIS IV AND ORAL CONT CLINICAL HISTORY: K57.92 Acute diverticulitis COMPARISON STUDY: 08/26/2017 TECHNIQUE: Following the IV administration of 93 mL of Optiray-320, CT scan of the abdomen and pelvis was performed from the lung bases to the proximal femurs. Images are reviewed in the axial, sagittal, and coronal planes. IV contrast was administered without complication. A dose lowering technique was utilized adhering to the principles of ALARA. CT DOSE: 545.66 mGy.cm FINDINGS: Lower chest: There are minor basilar atelectatic changes. There is a stable 2.5 mm right lower lobe pulmonary nodule Liver: No focal hepatic masses are visualized. There is no ductal dilatation. The portal vein appears patent. Gallbladder: Unremarkable. Spleen: Normal in size and attenuation. Pancreas: Unremarkable. Adrenal glands: Unremarkable. Kidneys: There is a stable 2 small to characterize 7 mm left renal hypodense lesion which is indeterminate as it exceeds water attenuation. There is no hydronephrosis. Bowel: There are no transition zones indicate bowel obstruction. The appendix appears surgically absent. There are multiple sigmoid diverticula present. There is sigmoid wall thickening. There is infiltration the perisigmoid fat. The findings are consistent with sigmoid diverticulitis. The findings are minimally progressive when compared the preceding study. There are no fluid collections to indicate a drainable peridiverticular abscess. There is no free intraperitoneal air. Peritoneum: There is no intraperitoneal free air or abdominal ascites. There are small fat-containing inguinal hernias. Vasculature: The abdominal aorta is normal in course and caliber. Adenopathy: None. Pelvic viscera: The bladder, and pelvic viscera are unremarkable. Skeletal structures: No destructive osseous lesions are seen. IMPRESSION: 1. Persistent and minimally progressive sigmoid diverticulitis. No evidence of peridiverticular abscess. No evidence of perforation. 2. No evidence of bowel obstruction. No evidence of free air 3. Stable indeterminate 7 mm left renal hypodense lesion Electronically signed by: Jerry Ortiz M.D. 09/17/2017 2:55 PM Dictated Date/Time: 09/17/2017 2:48 PM
== END | disposition home or self-care (01) ==
LOC: C.CTS 12:29
PROVIDERS: ATTEND Family Medicine
DX: K57.32 Diverticulitis of large intestine without perforation or abscess without bleeding (principal); N28.9 Disorder of kidney and ureter, unspecified

== ENCOUNTER → 2018-02-24 | Outpatient (CLI) | payer BC ==
[~2018-02-24] MED LIST changes: +ASPI-319 PO; -ASPI81TA21 PO; -OPTIRAY 320 IV PRN
== END | disposition home or self-care (01) ==
LOC: C.LAB 17:13
PROVIDERS: ATTEND Nurse Practitioner Family
DX: N20.0 Calculus of kidney (principal); N28.1 Cyst of kidney, acquired; R10.9 Unspecified abdominal pain

== ENCOUNTER → 2018-02-24 | Outpatient (CLI) | payer BC ==
--- NOTE | 2018-02-24 17:54 | DIAGNOSTIC IMAGING REPORT ---
KUB HISTORY: Acute left-sided flank pain R10.9 Flank [id number] COMPARISON: CT abdomen and pelvis 09/17/2017. FINDINGS: The bowel gas pattern is non-obstructive. Surgical suture material projects over the right mid abdomen and right lower quadrant. There is no organomegaly. No renal calculi. No ureteral calculi. Multiple pelvic basin calcifications redemonstrated suggesting probable phleboliths. No pneumoperitoneum or pneumatosis. No fracture. Degenerative changes of the spine and hips. IMPRESSION: 1. No definite renal or ureteral calculi identified. 2. Multiple pelvic basin calcifications redemonstrated suggesting probable phleboliths. 3. Nonobstructive bowel gas pattern. Electronically signed by: Castillo Carcamo M.D. 02/24/2018 5:53 PM Dictated Date/Time: 02/24/2018 5:52 PM
== END | disposition home or self-care (01) ==
LOC: C.RAD 17:07
PROVIDERS: ATTEND Nurse Practitioner Family
DX: R10.9 Unspecified abdominal pain (principal)